=== PATIENT | female | born 1990 | race Caucasian/White ===

== ENCOUNTER → 2016-10-15 | Outpatient (REF) | payer MEDICAID | LOC: LAB 12:52 | PROVIDERS: ATTEND Family Medicine | DX: Z87.59 Personal history of other complications of pregnancy, childbirth and the puerperium (principal) | CPT/HCPCS: 84702 ==

== ENCOUNTER → 2016-10-17 | Outpatient (CLI) | payer MEDICAID | LOC: LAB 11:05 | PROVIDERS: ATTEND Family Medicine | DX: O26.20 Pregnancy care for patient with recurrent pregnancy loss, unspecified trimester (principal) | CPT/HCPCS: 36415; 84702 ==

== ENCOUNTER → 2017-01-27 | Outpatient (CLI) | payer MEDICAID ==
--- NOTE | 2017-01-27 18:21 | Diagnostic Imaging Report ---
INDICATION: Anatomical survey. EXAMINATION: OB sonogram. FINDINGS: A robbins viable intrauterine gestation is in cephalic position. The placenta is posterior with no abruption or previa. The volume of amniotic fluid appears normal and MESFIN is 12 cm. The heart rate is 161 beats per minute. No pathological finding at the anatomical survey was revealed. The biometrical measurements are congruent and correlate with an average sonographic age of 19 weeks 5 days, sonographic EDC of 06/18/2017 is also congruent with the last menstrual period. IMPRESSION: Robbins gestation, 19 weeks 5 days with normal anatomical survey. Dictated by: Dictated on workstation # [id number]
== END ==
LOC: RAD 15:04
PROVIDERS: ATTEND Family Medicine
DX: Z36 Encounter for antenatal screening of mother (principal)
CPT/HCPCS: 76805